=== PATIENT | male | born 1990 ===

== ENCOUNTER 2018-07-07 17:58 | Emergency (ER) | payer SELFPAY ==
[2018-07-07 18:08] VITALS: TEMP 98.6; O2SAT 100
[2018-07-07] MEDS ORDERED: DiphenhydrAMINE 50 mg/ml Inj IVP STA (18:33)
[2018-07-07] MEDS ORDERED: DiphenhydrAMINE 50 mg/ml Inj ONE (18:46)
[2018-07-07 20:00] LABS: BASO # 0.1 K/uL (0.0-0.2); BASO % 0.5 % (0.0-2.0); EOS # 0.1 K/uL (0.0-0.7); EOS % 0.6 % (0.0-4.0); HEMOGLOBIN 14.8 g/dL (12.0-18.0); LYMPH # 2.1 K/uL (1.0-4.3); LYMPH % 21.1 % (20.0-40.0); MEAN CELL VOLUME 84.7 fl (80.0-94.0); MEAN CORPUSCULAR HEMOGLOBIN 28.2 pg (27.0-31.0); MEAN CORPUSCULAR HGB CONC 33.3 g/dL (33.0-37.0); MEAN PLATELET VOLUME 8.5 fl (7.2-11.7); MONO # 0.9 K/uL (0.0-0.8); MONO % 8.9 % (0.0-10.0); NEUT # 6.8 K/uL (1.8-7.0); NEUT % 68.9 % (50.0-75.0); NRBC % 0.2 % (0.0-0.0); RBC 5.26 Mil/uL (4.40-5.90); RED CELL DISTRIBUTION WIDTH 13.5 % (11.5-14.5); WHITE BLOOD COUNT 9.9 K/uL (4.8-10.8)
[2018-07-07 20:06] LABS: ALB/GLOB RATIO 1.3 (1.0-2.1); ALBUMIN 4.1 g/dL (3.5-5.0); ALT/SGPT 24 U/L (21-72); AST/SGOT 21 U/L (17-59); BLOOD UREA NITROGEN 18 mg/dl (9-20); GFR NON-AFRICAN AMERICAN > 60
[2018-07-07 21:08] VITALS: BP 110/62; PULSE 89; RESP 16
--- NOTE | 2018-07-07 21:13 | ED PDOC ---
HPI: Allergic Reaction Time Seen by Provider: 07/07/18 18:21 Chief Complaint (Nursing): Abnormal Skin Integrity Chief Complaint (Provider): Abnormal Skin Integrity History Per: Patient History/Exam Limitations: no limitations Onset/Duration Of Symptoms: Hrs Current Symptoms Are (Timing): Still Present Context: Food Associated Symptoms: Skin Rash Additional Complaint(s): 28 y/o male with no significant PMHx presents to the ED for evaluation of a rash, onset earlier today. Patient reports of developing a rash to his entire body after eating chicken soup at approximately one o'clock today. Patient reports he did not take any medications for symptom relief. Patient additionally is complaining of mid-sternal chest pain/epigastric pain. Otherwise, patient denies fever, nausea, vomiting, constipation, diarrhea and similar symptoms in the past. PMD: no provided Past Medical History Reviewed: Historical Data, Nursing Documentation, Vital Signs Vital Signs: Last Vital Signs Temp 98.6 F 07/07/18 18:06 Pulse 91 H 07/07/18 18:06 Resp 18 07/07/18 18:06 BP 129/76 07/07/18 18:06 Pulse Ox 100 07/07/18 18:06 - Medical History PMH: No Chronic Diseases - Surgical History Surgical History: No Surg Hx - Family History Family History: States: Unknown Family Hx - Social History Drugs: Denies - Home Medications Home Medications: Ambulatory Orders Medication Instructions Recorded DiphenhydrAMINE [Benadryl] 50 mg PO Q8H 3 Days #20 cap 07/07/18 Famotidine [Pepcid] 20 mg PO BID #20 tab 07/07/18 Prednisone 50 mg PO DAILY #4 tab 07/07/18 - Allergies Allergies/Adverse Reactions: Allergies Allergy/AdvReac Type Severity Reaction Status Date / Time No Known Allergies Allergy Verified 07/07/18 18:15 Review of Systems ROS Statement: Except As Marked, All Systems Reviewed And Found Negative Constitutional: Negative for: Fever Cardiovascular: Positive for: Chest Pain Gastrointestinal: Positive for: Abdominal Pain. Negative for: Nausea, Vomiting, Diarrhea, Constipation Skin: Positive for: Rash Physical Exam - Reviewed Nursing Documentation Reviewed: Yes Vital Signs Reviewed: Yes - Physical Exam Appears: Positive for: No Acute Distress Head Exam: Positive for: ATRAUMATIC, NORMOCEPHALIC Skin: Positive for: Rash (generalized urticarial rash) Eye Exam: Positive for: Normal appearance, EOMI, PERRL ENT: Positive for: Normal ENT Inspection, Pharynx Is (clear). Negative for: Pharyngeal Erythema, Tonsillar Exudate, Tonsillar Swelling, Other (drooling) Neck: Positive for: Normal, Painless ROM, Supple Cardiovascular/Chest: Positive for: Regular Rate, Rhythm. Negative for: Murmur Respiratory: Positive for: Normal Breath Sounds. Negative for: Respiratory Distress Gastrointestinal/Abdominal: Positive for: Normal Exam, Soft Male Genital Exam: Negative for: normal genitalia Back: Positive for: Normal Inspection. Negative for: L CVA Tenderness, R CVA Tenderness, Vertebral Tenderness Extremity: Positive for: Normal ROM. Negative for: Pedal Edema, Deformity Neurologic/Psych: Positive for: Alert, Oriented, Other (Speaking Full Sentences). Negative for: Motor/Sensory Deficits - Laboratory Results Result Diagrams: 07/07/18 18:41 07/07/18 18:41 - ECG O2 Sat by Pulse Oximetry: 100 (RA) Pulse Ox Interpretation: Normal Disposition - Clinical Impression Clinical Impression: Urticaria - Disposition Referrals: [facility] [Outside] Disposition: Routine/Home Disposition Time: 21:15 Condition: IMPROVED Prescriptions: DiphenhydrAMINE [Benadryl] 50 mg PO Q8H 3 Days #20 cap Famotidine [Pepcid] 20 mg PO BID #20 tab Prednisone 50 mg PO DAILY #4 tab Instructions: Hives Forms: [facility] ([place]ic) Medical Decision Making Medical Decision Making: Time: 1831 Plan: -- CMP -- Troponin I -- CBC with Differentials -- Benadryl 50 mg IVP -- Pepcid 20 mg IVP -- SOLU-Medrol 125 mg IVP 20:45 Pt reports symptoms have resolved. Rash resolved. Scribe Attestation: Documented by Luis Alfredo Sanchez, acting as a scribe for Breanna Block MD. Provider Scribe Attestation: All medical record entries made by the Scribe were at my direction and personally dictated by me. I have reviewed the chart and agree that the record accurately reflects my personal performance of the history, physical exam, medical decision making, and the department course for this patient. I have also personally directed, reviewed, and agree with the discharge instructions and disposition.
--- NOTE | 2018-07-16 05:40 | CARD ---
APPROVED REPORT Date of service: 07/07/2018 EKG Measurement Heart [id number] <Conclusion> Normal sinus rhythm Normal ECG
== END 2018-07-07 21:23 | disposition home or self-care (01) ==
LOC: H.ER 17:58
DX: L50.0 Allergic urticaria (principal)
CPT/HCPCS: 80053; 84484; 85025; 93005; 96374; 96375; 99284; J1200; J2930